=== PATIENT | female | born 1975 | race Two or more races ===

== ENCOUNTER 2017-12-25 12:18 | Emergency (ER) | payer MEDICAID ==
[~2017-12-25] VITALS: Ht 149.9 cm; Wt 56.7 kg
[2017-12-25 12:24] VITALS: BP 119/78
== END 2017-12-25 14:32 | disposition home or self-care (01) ==
LOC: ER 12:18
DX: H66.91 Otitis media, unspecified, right ear (principal); K04.7 Periapical abscess without sinus

== ENCOUNTER 2018-07-03 17:20 | Emergency (ER) | payer MEDICAID ==
[~2018-07-03] VITALS: Ht 160 cm; Wt 59.0 kg
[2018-07-03 19:30] VITALS: BP 90/60
== END 2018-07-03 19:33 | disposition home or self-care (01) ==
LOC: ER 17:27
DX: H66.92 Otitis media, unspecified, left ear (principal)

== ENCOUNTER 2019-10-19 08:58 | Emergency (ER) | payer MEDICAID ==
[~2019-10-19] VITALS: Ht 154.9 cm; Wt 54.4 kg
[2019-10-19 09:04] VITALS: BP 106/76
== END 2019-10-19 09:40 | disposition home or self-care (01) ==
LOC: ER 08:58
DX: H66.92 Otitis media, unspecified, left ear (principal)

== ENCOUNTER 2020-07-15 14:17 | Emergency (ER) | payer MEDICAID ==
[~2020-07-15] VITALS: Ht 152.4 cm; Wt 63.5 kg
[2020-07-15 16:30] VITALS: BP 111/71
== END 2020-07-15 17:45 | disposition home or self-care (01) ==
LOC: ER 14:17
DX: H60.92 Unspecified otitis externa, left ear (principal)

== ENCOUNTER 2020-11-11 10:49 | Emergency (ER) | payer MEDICAID ==
[~2020-11-11] VITALS: Ht 134.6 cm; Wt 59.0 kg
[2020-11-11 11:26] VITALS: BP 117/72
[2020-11-11] MEDS ORDERED: KETOROLAC TROMETH 60MG/2ML VIAL IM ONE (13:00)
== END 2020-11-11 13:14 | disposition home or self-care (01) ==
LOC: ER 10:49
DX: S39.012A Strain of muscle, fascia and tendon of lower back, initial encounter (principal); S63.591A Other specified sprain of right wrist, initial encounter; S70.01XA Contusion of right hip, initial encounter; W18.39XA Other fall on same level, initial encounter; Y93.89 Activity, other specified; Y92.89 Other specified places as the place of occurrence of the external cause; Y99.8 Other external cause status
CPT/HCPCS: 29125; 72100; 73100; 73502; 96372; 99284; J1885

== ENCOUNTER 2021-10-15 09:23 | Emergency (ER) | payer MEDICAID ==
[~2021-10-15] VITALS: Ht 152.4 cm; Wt 63.3 kg
[2021-10-15 11:55] VITALS: BP 108/67
[2021-10-15] MEDS ORDERED: AZIT500T66 PO (12:20)
[2021-10-15] MEDS ORDERED: LIDO2SOL23 MT (12:20)
== END 2021-10-15 13:05 | disposition home or self-care (01) ==
LOC: ER 09:23
DX: J03.90 Acute tonsillitis, unspecified (principal); Z79.2 Long term (current) use of antibiotics; Z79.899 Other long term (current) drug therapy

== ENCOUNTER 2022-01-16 22:51 | Emergency (ER) | payer MEDICAID ==
[~2022-01-16] VITALS: Ht 160 cm; Wt 63.9 kg
[~2022-01-16 22:51] MED LIST: AZIT500T66 PO; LIDO2SOL23 MT
[2022-01-16] MEDS ORDERED: KETOROLAC TROMETH 60MG/2ML VIAL IM ONE (23:45)
[2022-01-17] MEDS ORDERED: IBUP600T27 PO (02:12)
[2022-01-17] MEDS ORDERED: HYDR-4902 PO (02:12)
[2022-01-17 02:29] VITALS: BP 119/83
== END 2022-01-17 02:31 | disposition home or self-care (01) ==
LOC: ER 22:51
DX: S50.11XA Contusion of right forearm, initial encounter (principal); X58.XXXA Exposure to other specified factors, initial encounter; Y93.89 Activity, other specified; Y92.89 Other specified places as the place of occurrence of the external cause; Y99.8 Other external cause status
CPT/HCPCS: 73090; 96372; 99283; J1885

== ENCOUNTER 2023-08-23 08:33 | Emergency (ER) | payer MEDICAID ==
[~2023-08-23] VITALS: Ht 152.4 cm; Wt 61.3 kg
[~2023-08-23 08:33] MED LIST changes: +DOCU-80 PO; +HYD25TP TOP; +HYDR-4902 PO; +IBUP-1454 PO; -LIDO2SOL23 MT; +LIDO2SOL26 MT
[2023-08-23 09:05] LABS: Basophils # (auto) 0 10 ^3/uL (0-0.2); Basophils % (auto) 0.8 % (0.0-2.0); Eosinophils # (auto) 0.1 10 ^3/uL (0-0.8); Eosinophils % (auto) 1.5 % (0.0-7.0); Hematocrit 41.2 % (36.0-46.0); Lymphocytes # (auto) 1.9 10 ^3/uL (0.4-5.4); Lymphocytes % (auto) 34.5 % (10.0-50.0); Mean Corpuscular Hemoglobin 31.3 pg (28.0-32.0); Mean Corpuscular Volume 92.1 fL (80.0-100.0); Monocytes # (auto) 0.3 10 ^3/uL (0-1.3); Monocytes % (auto) 5.5 % (0.0-12.0); Neutrophils # (auto) 3.2 10 ^3/uL (1.6-8.6); Neutrophils % (auto) 57.7 % (37.0-80.0); Red Blood Cells 4.47 10^6/uL (4.0-5.20); Red Cell Distribution Width 12.7 % (11.8-14.3); White Blood Cell 5.6 10^3/uL (4.4-10.8)
[2023-08-23 09:16] LABS: Chloride 108 mmol/L (98-107); Potassium 3.9 mmol/L (3.5-5.1); Sodium 139 mmol/L (136-145)
[2023-08-23 09:17] LABS: Anion Gap 6 (5-15); Calcium 9.2 mg/dL (8.7-10.4); Carbon Dioxide 25 mmol/L (20-30)
[2023-08-23 09:22] LABS: BUN/Creatinine Ratio 13.1 (10.0-20.0); Blood Urea Nitrogen 8 mg/dL (9-23); Glucose 98 mg/dL (74-106)
[2023-08-23 09:27] LABS: Urine Bacteria FEW /hpf (None Seen); Urine Blood Negative /uL (Negative); Urine Color Yellow (Yellow); Urine Protein, UAD TRACE (Negative); Urine Specific Gravity 1.019 (1.001-1.035); Urine Urobilinogen Normal (Negative); Urine WBC 6 /hpf (0 - 5); Urine pH 7.5 (5.0-9.0)
[2023-08-23 09:29] LABS: Urine Clarity Hazy (Clear)
[2023-08-23] MEDS ORDERED: CEPH250C PO (09:49)
[2023-08-23] MEDS ORDERED: IBU600T PO (09:49)
[2023-08-23] MEDS: IBUPROFEN 600 MG TAB PO ONE (10:35)
[2023-08-23] MEDS: cefTRIAXone SOD 1,000 MG VL IM ONE (10:37)
[2023-08-23] MEDS: LIDOCAINE 1% HCL (LOCAL ANESTH.) INJ 20ML MDV ONE (10:49)
[2023-08-23 10:55] VITALS: BP 130/81; PULSE 71; RESP 14; TEMP 97.6; O2SAT 98
== END 2023-08-23 10:58 | disposition home or self-care (01) ==
LOC: ER 08:33
DX: N39.0 Urinary tract infection, site not specified (principal); E78.5 Hyperlipidemia, unspecified; Z79.899 Other long term (current) drug therapy
CPT/HCPCS: 36415; 80048; 81001; 85025; 96372; 99283; J0696; J2001

== ENCOUNTER 2024-07-23 15:07 | Emergency (ER) | payer MEDICAID ==
[~2024-07-23] VITALS: Ht 152.4 cm; Wt 58.3 kg
[~2024-07-23 15:07] MED LIST changes: +CEPH250C PO; +IBU600T PO
[2024-07-23 15:26] VITALS: TEMP 98
--- NOTE | 2024-07-23 15:29 | ED.PDOC ---
Back pain HPI HPI Comments 49 y/o F, presents to the ED for CC of back pain. Patient states, she was using restroom when she went to stand up she began to experience excruciating bilateral lumbar back pain [id number] [employer]. Patient denies lifting, trauma, fall, or injury. No other symptoms or modifying factors present at this time. Time Seen by : 15:20 Primary Care Provider: unknown Reviewed Notes: Nurses Notes, Medications, Allergies Allergies: Coded Allergies: NO KNOWN ALLERGIES (Unverified , 07/03/18) Home Meds Active Scripts Cyclobenzaprine Hcl (Cyclobenzaprine Hcl) 10 Mg Tab, 10 MG PO Q8HP PRN for 2 Days, #6 TAB Prov:ISSA CALVO MD 07/23/24 Ibuprofen Micronized (MOTRIN TABLET) 600 Mg Tb, 600 MG PO TID PRN, #40 TAB *Black box warning-NSAIDS can increase risk of WI & hypertension, GI irritation, ulceration, bleed, perferation. Do not use post cardiac surgery. Use short duration/lowest effective dose. Prov:ISSA CALVO MD 07/23/24 Ibuprofen Micronized (MOTRIN TABLET) 600 Mg Tb, 600 MG PO TID PRN for 3 Days, #9 TAB *Black box warning-NSAIDS can increase risk of WI & hypertension, GI irritation, ulceration, bleed, perferation. Do not use post cardiac surgery. Use short duration/lowest effective dose. Prov:KERI MAKI MD 08/23/23 Cephalexin (KEFLEX CAPSULE) 250 Mg Cp, 250 MG PO QID for 7 Days, #28 BOTTLE Prov:KERI MAKI MD 08/23/23 Hydrocortone (Hydrocortisone 2.5%) 1 Applic Ap, 1 APPLIC TOP BID PRN, #60 GRAMS Prov:TIA SHARIFP 02/15/23 Docusate Sodium (Stool Softener) 100 Mg Cap, 100 MG PO DAILY PRN, #60 CAP Prov:TIA SHARIFP 02/15/23 Hydrocodone-Acetaminophen (Hydrocodone Bitartrate/AC 5-325 mg) 1 Tab Tab, 1 TAB PO TIDP PRN, #10 TAB Prov:YAIMA FERNANDO PAC 01/17/22 Ibuprofen (Ibuprofen) 600 Mg Tab, 1 TAB PO TID, #20 TAB Prov:YAIMA FERNANDO PAC 01/17/22 Lidocaine HCl (Mouth-Throat) (Lidocaine HCl Viscous) 2 % Belkis, 2 % MT TID, #100 ML Prov:ERICK HSIEH 10/15/21 Azithromycin (Azithromycin) 500 Mg Tab, 500 MG PO DAILY for 5 Days, #5 TAB Prov:ERICK HSIEH 10/15/21 Information Source: Patient Mode of Arrival: Ambulatory Timing: Hours Duration: Since onset Location of Back pain: (B) Lumbar Severity: Moderate Prehospital treatment: None Onset: Spontaneous History of: None Modifying Factors: Movement, Twisting Associated signs and symptoms: None Past Medical History PAST MEDICAL HISTORY: High Lipids Surgical 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 all surgeries SAL[employer] 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 all [employer] Hx Family History Family History: Reviewed,noncontributory to illness Social History Smoker: Non-Smoker Alcohol: Denies ETOH Use Drugs: Denies Drug Use Lives In: Home Constitutional: denies: chills, diaphoresis, fatigue, fever, malaise, sweats, weakness, others EENTM: denies: blurred vision, double vision, ear bleeding, ear discharge, ear drainage, ear pain, ear ringing, eye pain, eye redness, hearing loss, mouth pain, mouth swelling, nasal discharge, nose bleeding, nose congestion, nose pain, photophobia, tearing, throat pain, throat swelling, voice changes, others Respiratory: denies: cough, hemoptysis, orthopnea, SOB at rest, shortness of breath, SOB with excertion, stridor, wheezing, others Cardiovascular: denies: chest pain, dizzy spells, diaphoresis, Dyspnea on exertion, edema, irregular heart beat, left arm pain, lightheadedness, palpitations, PND, syncope, others Gastrointestinal: denies: abdomen distended, abdominal pain, blood streaked bowels, constipated, diarrhea, dysphagia, difficulty swallowing, hematemesis, melena, nausea, poor appetite, poor fluid intake, rectal bleeding, rectal pain, vomiting, others Genitourinary: denies: abnormal vagina bleeding, burning, dyspareunia, dysuria, flank pain, frequency, hematuria, incontinence, pain, , vagina discharge, urgency, others Neurological: denies: dizziness, fainting, headache, left sided numbness, left sided weakness, numbness, paresthesia, pre-existing deficit, right sided numbness, right sided weakness, seizure, speech problems, tingling, tremors, weakness, others Musculoskeletal: reports: back pain; denies: gout, joint pain, joint swelling, muscle pain, muscle stiffness, neck pain, others Integumetry: denies: bruises, change in color, change in hair/nails, dryness, laceration, lesions, lumps, rash, wounds, others Allergic/Immunocompromised: denies: Difficulty Healing, Frequent Infections, Hives, Itching, others Hematologic/Lymphatic: denies: anemia, blood clots, easy bleeding, easy bruising, swollen glands, others Endocrine: denies: excessive hunger, excessive sweating, excessive thirst, excessive urination, flushing, intolerance to cold, intolerance to heat, unexplained weight gain, unexplained weight loss, others Psychiatric: denies: anxiety, bipolar disorder, depression, hopeless, panic disorder, schizophrenia, sleepless, suicidal, others All Other Systems: Reviewed and Negative Physical Exam General Appearance: No Apparent Distress, Normal HEENT: Normal ENT Inspection, Pharynx Normal Neck: Full Range of Motion, Non-Tender, Normal, Normal Inspection Respiratory: Chest Non-Tender, Lungs Clear, No Accessory Muscle Use, No Respiratory Distress, Normal Breath Sounds Cardiovascular: No Edema, No Murmur, No Gallop, Normal Peripheral Pulses, Regular Rate/Rhythm Breast Exam: Deferred Gastrointestinal: No Organomegaly, Non Tender, No Pulsatile Mass, Normal Bowel Sounds, Soft Genitalia: Deferred Pelvic: Deferred Rectal: Deferred Extremities: No calf tenderness, Normal capillary refill, Normal inspection, Normal range of motion, Non-tender, No pedal edema Musculoskeletal : Location: Bilateral Extremity Location: Back (pain with movement) Apperance: Normal Neurologic: Alert, power press operator II-XII nml as Tested, No Motor Deficits, Normal Affect, Normal Mood, No Sensory Deficits Cerebellar Function: Normal Reflexes: Normal Skin: Dry, Normal Color, Warm Lymphatic: No Adenopathy Was a procedure done? Was a procedure done?: No Back Pain Differential Dx Differential Diagnosis: Musculoskeletal Pain, Strain X-Ray, Labs, Meds, VS Vital Signs Date Time Temp Pulse Resp B/P (MAP) Pulse Ox O2 Delivery O2 Flow Rate FiO2 07/23/24 15:26 98.0 92 17 121/90 (100) 97 98.0 Time of 1ST Reevaluation: 15:50 Reevaluation 1ST: Unchanged Time of 2ND Reevaluation: 16:00 Reevaluation 2ND: Improved Patient Education/Counseling: Diagnosis, Treatment, Prognosis, Need For Follow Up Family Education/Counseling: No Family Present Departure 1 Departure Time of Disposition: 16:02 Impression: Primary Impression: Lumbar sprain Qualified Codes: S33.5XXA - Sprain of ligaments of lumbar spine, initial encounter Disposition: HOME / SELF CARE / HOMELESS Condition: Good e-Prescriptions Cyclobenzaprine Hcl (Cyclobenzaprine Hcl) 10 Mg Tab 10 MG PO Q8HP PRN for 2 Days, #6 TAB Prov: ISSA CALVO MD 07/23/24 Ibuprofen Micronized (MOTRIN TABLET) 600 Mg Tb 600 MG PO TID PRN, #40 TAB *Black box warning-NSAIDS can increase risk of WI & hypertension, GI irritation, ulceration, bleed, perferation. Do not use post cardiac surgery. Use short duration/lowest effective dose. Prov: ISSA CALVO MD 07/23/24 Discharged With: Self Critical Care Note Critical Care Time?: No Stability Stability form required: No Heart Score Heart Score: Heart Score Response (Comments) Value History N/A 0 EKG N/A 0 Age N/A 0 Risk Factors N/A 0 Troponin N/A 0 Total 0 I personally scribed for ISSA CALVO MD ([email or web address]) on 07/23/24 at 15:29. Electronically submitted by Ninfa Yun ([email or web address]). ISSA CALVO MD Jul 23, 2024 15:29
[2024-07-23] MEDS ORDERED: IBU600T PO (15:37)
[2024-07-23] MEDS ORDERED: CYCL-839 PO (15:37)
[2024-07-23] MEDS: KETOROLAC TROMETH 30 MG/ML 1ML VIAL IM ONE (16:13)
[2024-07-23 16:33] VITALS: BP 125/85; PULSE 69; RESP 16; O2SAT 99
== END 2024-07-23 16:35 | disposition home or self-care (01) ==
LOC: ER 15:13
DX: S33.5XXA Sprain of ligaments of lumbar spine, initial encounter (principal); E78.5 Hyperlipidemia, unspecified; Z79.899 Other long term (current) drug therapy; Z79.1 Long term (current) use of non-steroidal anti-inflammatories (NSAID); X58.XXXA Exposure to other specified factors, initial encounter; Y93.89 Activity, other specified; Y92.091 Bathroom in other non-institutional residence as the place of occurrence of the external cause; Y99.8 Other external cause status
CPT/HCPCS: 96372; 99283; J1885